=== PATIENT | female | born 1970 | race Caucasian/White ===

== ENCOUNTER 2018-03-19 17:18 | Inpatient (IN) | payer OTHER, MEDICAID ==
[~2018-03-19] VITALS: Ht 160 cm; Wt 85.3 kg
[~2018-03-19 17:18] MED LIST: DOCU250C16 PO; MECL-111 PO; MIDO10TA PO; NITR0.4T50 SL; PANT40TA25 PO; PARO25TA21 PO
[2018-03-19] MEDS ORDERED: PLEC3TAB PO (17:48)
[2018-03-19 18:13] LABS: GLUCOSE,POINT OF CARE 109 MG/DL (70-110)
[2018-03-19 18:30] LABS: BASOPHILS % (AUTO) 0.9 % (0.0-2.0); EOSINOPHILS % (AUTO) 3.3 % (1.0-6.0); HEMATOCRIT 34.8 % (36-46); HEMOGLOBIN 11.4 g/dL (12.0-16.0); LYMPHOCYTES # (AUTO) 2.2 K/uL (1.0-4.8); LYMPHOCYTES % (AUTO) 28.3 % (22.0-44.0); MEAN CORPUSCULAR HEMOGLOBIN 24.4 pg (26.0-34.0); MEAN CORPUSCULAR HGB CONC 32.8 G/dL (31.0-37.0); MEAN CORPUSCULAR VOLUME 74 fL (80-100); MONOCYTES # (AUTO) 0.7 K/uL (0.1-1.0); MONOCYTES % (AUTO) 9.2 % (2.0-9.0); NEUTROPHILS # (AUTO) 4.5 K/uL (1.8-7.7); NEUTROPHILS % (AUTO) 58.3 % (40.0-70.0); PLATELET COUNT (AUTO) 374 K/uL (150-450); RED BLOOD CELL COUNT(AUTO) 4.69 MIL/uL (4.00-5.20); RED CELL DISTRIBUTION WIDTH 17.2 % (11.5-14.5)
[2018-03-19 18:33] LABS: ANION GAP 7 mmol/L (8-16); CALCIUM, TOTAL 8.7 mg/dL (8.8-10.5); CARBON DIOXIDE 28 mmol/L (22-29); CHLORIDE 104 mmol/L (98-107); CREATININE 0.76 mg/dL (0.60-1.30); GLOMERULAR FILTR. RATE CALC > 60 mL/min (>60); GLUCOSE,RANDOM 103 mg/dL (70-110); SODIUM SERUM 139 mmol/L (136-145); UREA NITROGEN, BLOOD 12 mg/dL (7-18)
[2018-03-19 18:34] LABS: AMPHET/METH SCREEN,URINE NEGATIVE (NEGATIVE); BARBITURATE SCREEN, URINE NEGATIVE (NEGATIVE); BENZODIAZEPINES SCREEN,URINE NEGATIVE (NEGATIVE); CANNABINOID SCREEN,URINE NEGATIVE (NEGATIVE); COCAINE SCREEN,URINE NEGATIVE (NEGATIVE); METHADONE SCREEN, URINE NEGATIVE (NEGATIVE); OPIATE SCREEN,URINE NEGATIVE (NEGATIVE)
[2018-03-19 18:35] LABS: PHENCYCLIDINE SCREEN,URINE NEGATIVE (NEGATIVE)
[2018-03-19 18:38] LABS: ALANINE AMINOTRANSFERASE 22 U/L (12-78); ALBUMIN 3.3 g/dL (3.4-5.0); ALKALINE PHOSPHATASE 111 U/L (46-116); ASPARTATE AMINOTRANSFERASE 16 U/L (15-37); BILIRUBIN,TOTAL 0.2 mg/dL (0.1-1.0); TOTAL PROTEIN, SERUM 7.7 g/dL (6.4-8.2)
[2018-03-19] MEDS ORDERED: ZOLPIDEM TARTRATE 10 MG TABLET PO PRN (23:30)
[2018-03-19] MEDS ORDERED: HALOPERIDOL 5 MG TABLET PO PRN (23:30)
[2018-03-20 01:30] VITALS: BP 126/48
[2018-03-20] MEDS: LORazepam 2 MG TABLET PO PRN ×2 (01:31→09:07)
[2018-03-20 08:25] LABS: CHOL/HDL RATIO 3.2 (3.9-5.7)
[2018-03-20 08:30] VITALS: BP 108/61
[2018-03-20] MEDS ORDERED: BENZOCAINE/MENTHOL LOZENGE MM PRN (11:00)
[2018-03-20] MEDS ORDERED: MAG HYDROX/AL HYDROX/SIMETH ES 30 ML SUSPENSION UDCUP PO PRN (11:00)
[2018-03-20] MEDS ORDERED: BACITRACIN 28.4 GM OINTMENT TP PRN (11:00)
[2018-03-20] MEDS ORDERED: PETROLATUM,WHITE 71 GM JELLY TP PRN (11:00)
[2018-03-20] MEDS ORDERED: ONDANSETRON HCL 4 MG TABLET PO PRN (11:00)
[2018-03-20] MEDS ORDERED: LOPERAMIDE HCL 2 MG CAPSULE PO PRN (11:00)
[2018-03-20] MEDS ORDERED: CloNIDine HCL 0.1 MG TABLET PO PRN (11:00)
[2018-03-20] MEDS ORDERED: IBUPROFEN 600 MG TABLET PO PRN (11:00)
[2018-03-20] MEDS ORDERED: MAGNESIUM HYDROXIDE SUSPENSION 30 ML UDCUP PO PRN (11:00)
[2018-03-20] MEDS ORDERED: ACETAMINOPHEN 325 MG TABLET PO PRN (11:00)
[2018-03-20] MEDS ORDERED: ALBUTEROL SULFATE HFA 90 MCG/PUFF 8 GM INHALER IH PRN (11:00)
[2018-03-20] MEDS: QUEtiapine FUMARATE 25 MG TABLET PO SCH (16:54)
[2018-03-20 20:00] VITALS: BP 108/71
[2018-03-21 07:41] LABS: % IRON SATURATION 4.6 % (22-44)
[2018-03-21 08:30] VITALS: BP 122/70
[2018-03-21] MEDS: QUEtiapine FUMARATE 25 MG TABLET PO SCH ×2 (08:36→16:11)
[2018-03-21] MEDS: OMEPRAZOLE 20 MG CAPSULE PO SCH (08:36)
[2018-03-21] MEDS: DOCUSATE SODIUM 100 MG CAPSULE PO SCH (08:36)
[2018-03-21 22:21] VITALS: BP 105/79
[2018-03-22 09:31] VITALS: BP 124/89
[2018-03-22] MEDS: DOCUSATE SODIUM 100 MG CAPSULE PO SCH (09:38)
[2018-03-22] MEDS: QUEtiapine FUMARATE 25 MG TABLET PO SCH ×2 (09:38→16:26)
[2018-03-22] MEDS: OMEPRAZOLE 20 MG CAPSULE PO SCH (09:39)
[2018-03-22] MEDS: FERROUS SULFATE 325 MG EC TABLET PO SCH (16:26)
[2018-03-22 18:52] VITALS: BP 115/74
[2018-03-23] MEDS: FERROUS SULFATE 325 MG EC TABLET PO SCH ×2 (07:00→19:53)
[2018-03-23 08:20] VITALS: BP 122/72
[2018-03-23] MEDS: DOCUSATE SODIUM 100 MG CAPSULE PO SCH (09:00)
[2018-03-23] MEDS: OMEPRAZOLE 20 MG CAPSULE PO SCH (09:00)
[2018-03-23] MEDS: QUEtiapine FUMARATE 25 MG TABLET PO SCH ×2 (09:00→16:34)
[2018-03-23] MEDS: LORazepam 2 MG TABLET PO PRN (16:37)
[2018-03-23 17:00] VITALS: BP 152/89
[2018-03-24] MEDS: LORazepam 2 MG TABLET PO PRN (06:37)
[2018-03-24] MEDS: FERROUS SULFATE 325 MG EC TABLET PO SCH (06:37)
[2018-03-24] MEDS ORDERED: CHOLECALCIFEROL (VIT D3) 1,000 UNITS TABLET PO SCH (09:00)
[2018-03-24] MEDS: QUEtiapine FUMARATE 25 MG TABLET PO SCH (09:10)
[2018-03-24] MEDS: DOCUSATE SODIUM 100 MG CAPSULE PO SCH (09:10)
[2018-03-24] MEDS: OMEPRAZOLE 20 MG CAPSULE PO SCH (09:10)
[2018-03-24] MEDS ORDERED: QUET25TA PO (13:04)
[2018-03-24] MEDS ORDERED: DSS100 PO (13:18)
[2018-03-24] MEDS ORDERED: VITAD1000 PO (13:18)
[2018-03-24] MEDS ORDERED: FERR-89 PO (13:19)
[2018-03-24] MEDS ORDERED: OMEP20 PO (13:19)
== END 2018-03-24 15:15 | disposition home or self-care (01) | DRG 885 ==
LOC: EMS 17:19 → 3EI 23:30
PROVIDERS: ADMIT Psychiatry & Neurology Child & Adolescent Psychiatry; ATTEND Psychiatry & Neurology Child & Adolescent Psychiatry
DX: F29 Unspecified psychosis not due to a substance or known physiological condition (principal); R45.851 Suicidal ideations; E11.9 Type 2 diabetes mellitus without complications; F32.9 Major depressive disorder, single episode, unspecified; I10 Essential (primary) hypertension; D64.9 Anemia, unspecified; F41.9 Anxiety disorder, unspecified; I20.9 Angina pectoris, unspecified; E55.9 Vitamin D deficiency, unspecified; J45.909 Unspecified asthma, uncomplicated; K21.9 Gastro-esophageal reflux disease without esophagitis; Z86.73 Personal history of transient ischemic attack (TIA), and cerebral infarction without residual deficits; Z79.51 Long term (current) use of inhaled steroids; Z79.84 Long term (current) use of oral hypoglycemic drugs; Z79.899 Other long term (current) drug therapy; Z83.3 Family history of diabetes mellitus; Z83.42 Family history of familial hypercholesterolemia; Z84.89 Family history of other specified conditions; Z82.61 Family history of arthritis; Z83.49 Family history of other endocrine, nutritional and metabolic diseases; Z82.49 Family history of ischemic heart disease and other diseases of the circulatory system
CPT/HCPCS: 82306; 83540; 83550; 99285; G0480

== ENCOUNTER 2018-05-11 13:55 | Inpatient (IN) | payer OTHER, MEDICAID ==
[~2018-05-11] VITALS: Ht 160 cm; Wt 85.3 kg
[~2018-05-11 13:55] MED LIST changes: -DOCU250C16 PO; +DSS100 PO; +FERR-89 PO; -MECL-111 PO; -MIDO10TA PO; -NITR0.4T50 SL; +OMEP20 PO; -PANT40TA25 PO; -PARO25TA21 PO; +QUET25TA PO; +VITAD1000 PO
[2018-05-11] MEDS ORDERED: HALOPERIDOL 5 MG TABLET PO PRN (14:15)
[2018-05-11] MEDS ORDERED: ZOLPIDEM TARTRATE 10 MG TABLET PO PRN (14:15)
[2018-05-11 14:43] VITALS: BP 134/91
[2018-05-11] MEDS ORDERED: TRAZ-219 PO (16:29)
[2018-05-11] MEDS ORDERED: VENL-67 PO (16:29)
[2018-05-11 17:36] VITALS: BP 145/76
[2018-05-11] MEDS ORDERED: PNEUMOCOCCAL VACCINE POLYVALENT 0.5 ML VIAL [PPSV23] IM ONE (18:00)
[2018-05-11] MEDS ORDERED: IBUPROFEN 400 MG TABLET PO PRN (20:15)
[2018-05-11] MEDS ORDERED: MAGNESIUM HYDROXIDE SUSPENSION 30 ML UDCUP PO PRN (20:15)
[2018-05-11] MEDS ORDERED: LOPERAMIDE HCL 2 MG CAPSULE PO PRN (20:15)
[2018-05-11] MEDS ORDERED: ONDANSETRON HCL 4 MG TABLET PO PRN (20:15)
[2018-05-11] MEDS ORDERED: ALBUTEROL SULFATE HFA 90 MCG/PUFF 8 GM INHALER IH PRN (20:15)
[2018-05-11] MEDS ORDERED: DOCUSATE SODIUM 100 MG CAPSULE PO PRN (20:15)
[2018-05-11] MEDS ORDERED: CloNIDine HCL 0.1 MG TABLET PO PRN (20:15)
[2018-05-11] MEDS ORDERED: PETROLATUM,WHITE 71 GM JELLY TP PRN (20:15)
[2018-05-11] MEDS ORDERED: MAG HYDROX/AL HYDROX/SIMETH ES 30 ML SUSPENSION UDCUP PO PRN (20:15)
[2018-05-11] MEDS ORDERED: ACETAMINOPHEN 325 MG TABLET PO PRN (20:15)
[2018-05-11] MEDS: TraZODone HCL 50 MG TABLET PO SCH (21:02)
[2018-05-12] MEDS: FERROUS SULFATE 325 MG EC TABLET PO SCH ×2 (06:52→16:38)
[2018-05-12] MEDS ORDERED: NICOTINE 14 MG/24 HOUR PATCH TD SCH (09:00)
[2018-05-12] MEDS ORDERED: VENLAFAXINE HCL 75 MG ER CAPSULE PO SCH (09:00)
[2018-05-12] MEDS: DOCUSATE SODIUM 100 MG CAPSULE PO SCH (09:08)
[2018-05-12] MEDS: OMEPRAZOLE 20 MG CAPSULE PO SCH (09:08)
[2018-05-12] MEDS: CHOLECALCIFEROL (VIT D3) 1,000 UNITS TABLET PO SCH (09:09)
[2018-05-12] MEDS: LORazepam 2 MG TABLET PO PRN (09:10)
[2018-05-12 09:21] VITALS: BP 107/85
[2018-05-12] MEDS ORDERED: VENLAFAXINE HCL 75 MG ER CAPSULE PO ONE (10:15)
[2018-05-12 19:44] VITALS: BP 118/67
[2018-05-12] MEDS: TraZODone HCL 50 MG TABLET PO SCH (20:57)
[2018-05-13 04:38] LABS: AMPHET/METH SCREEN,URINE NEGATIVE (NEGATIVE); BARBITURATE SCREEN, URINE NEGATIVE (NEGATIVE); BENZODIAZEPINES SCREEN,URINE NEGATIVE (NEGATIVE); CANNABINOID SCREEN,URINE NEGATIVE (NEGATIVE); COCAINE SCREEN,URINE NEGATIVE (NEGATIVE); METHADONE SCREEN, URINE NEGATIVE (NEGATIVE); OPIATE SCREEN,URINE NEGATIVE (NEGATIVE); PHENCYCLIDINE SCREEN,URINE NEGATIVE (NEGATIVE)
[2018-05-13 04:42] LABS: APPEARANCE,URINE CLEAR (CLEAR); BILIRUBIN,URINE NEGATIVE (NEGATIVE); GLUCOSE, URINE (UA) NEGATIVE (NEGATIVE); KETONES,URINE NEGATIVE (NEGATIVE); LEUKOCYTE ESTERASE ,URINE NEGATIVE (NEGATIVE); NITRATE,URINE NEGATIVE (NEGATIVE); OCCULT BLOOD,URINE NEGATIVE (NEGATIVE); PH,URINE 7.5 (5.0-8.0); PROTEIN,URINE NEGATIVE (NEGATIVE); UROBILINOGEN,URINE 0.2 mg/dL (<=1.0)
[2018-05-13 06:52] LABS: EOSINOPHILS % (AUTO) 4.8 % (1.0-6.0); HEMATOCRIT 35.3 % (36-46); HEMOGLOBIN 11.4 g/dL (12.0-16.0); LYMPHOCYTES # (AUTO) 1.8 K/uL (1.0-4.8); LYMPHOCYTES % (AUTO) 32.7 % (22.0-44.0); MEAN CORPUSCULAR HEMOGLOBIN 24.3 pg (26.0-34.0); MEAN CORPUSCULAR HGB CONC 32.3 G/dL (31.0-37.0); MEAN CORPUSCULAR VOLUME 75 fL (80-100); MONOCYTES # (AUTO) 0.4 K/uL (0.1-1.0); MONOCYTES % (AUTO) 7.8 % (2.0-9.0); NEUTROPHILS % (AUTO) 53.7 % (40.0-70.0); PLATELET COUNT (AUTO) 360 K/uL (150-450); RED BLOOD CELL COUNT(AUTO) 4.68 MIL/uL (4.00-5.20); RED CELL DISTRIBUTION WIDTH 17.8 % (11.5-14.5)
[2018-05-13] MEDS: FERROUS SULFATE 325 MG EC TABLET PO SCH ×2 (07:13→16:48)
[2018-05-13 07:19] LABS: ALANINE AMINOTRANSFERASE 15 U/L (12-78); ALBUMIN 3.1 g/dL (3.4-5.0); ALKALINE PHOSPHATASE 85 U/L (46-116); ANION GAP 5 mmol/L (8-16); ASPARTATE AMINOTRANSFERASE 13 U/L (15-37); BILIRUBIN,TOTAL 0.3 mg/dL (0.1-1.0); CALCIUM, TOTAL 8.4 mg/dL (8.8-10.5); CARBON DIOXIDE 28 mmol/L (22-29); CHLORIDE 103 mmol/L (98-107); CHOL/HDL RATIO 3.6 (3.9-5.7); CHOLESTEROL 202 mg/dL (131-200); CREATININE 0.48 mg/dL (0.60-1.30); FREE T4 (FREE THYROXINE) 0.88 ng/dL (0.76-1.46); GLOMERULAR FILTR. RATE CALC > 60 mL/min (>60); GLUCOSE,RANDOM 79 mg/dL (70-110); HCG,QUANTITATIVE < 1 mIU/mL (0-6); HDL CHOLESTEROL 56 mg/dL (40-60); LDL CHOL (CALC.) 130 mg/dL (0-130); POTASSIUM 4.1 mmol/L (3.5-5.1); SODIUM SERUM 136 mmol/L (136-145); THYROID STIMULATING HORMONE 0.85 uIU/mL (0.36-3.74); TOTAL PROTEIN, SERUM 6.6 g/dL (6.4-8.2); TRIGLYCERIDES 78 mg/dL (15-150); UREA NITROGEN, BLOOD 9 mg/dL (7-18)
[2018-05-13] MEDS: DOCUSATE SODIUM 100 MG CAPSULE PO SCH (08:27)
[2018-05-13] MEDS: OMEPRAZOLE 20 MG CAPSULE PO SCH (08:27)
[2018-05-13] MEDS: VENLAFAXINE HCL 150 MG ER CAPSULE PO SCH (08:27)
[2018-05-13] MEDS: CHOLECALCIFEROL (VIT D3) 1,000 UNITS TABLET PO SCH (08:27)
[2018-05-13 10:01] VITALS: BP 103/74
[2018-05-13 17:36] VITALS: BP 109/57
[2018-05-13] MEDS: TraZODone HCL 50 MG TABLET PO SCH (20:42)
[2018-05-13] MEDS: LORazepam 2 MG TABLET PO PRN (20:45)
[2018-05-14] MEDS: FERROUS SULFATE 325 MG EC TABLET PO SCH ×2 (07:15→17:37)
[2018-05-14 08:10] VITALS: BP 110/71
[2018-05-14] MEDS: VENLAFAXINE HCL 150 MG ER CAPSULE PO SCH (08:54)
[2018-05-14] MEDS: DOCUSATE SODIUM 100 MG CAPSULE PO SCH (08:54)
[2018-05-14] MEDS: CHOLECALCIFEROL (VIT D3) 1,000 UNITS TABLET PO SCH (08:54)
[2018-05-14] MEDS: OMEPRAZOLE 20 MG CAPSULE PO SCH (08:54)
[2018-05-14] MEDS: LORazepam 2 MG TABLET PO PRN (14:03)
[2018-05-14] MEDS: TraZODone HCL 50 MG TABLET PO SCH (20:28)
[2018-05-14 21:42] VITALS: BP 110/66
[2018-05-15] MEDS: FERROUS SULFATE 325 MG EC TABLET PO SCH ×2 (06:52→17:30)
[2018-05-15] MEDS: OMEPRAZOLE 20 MG CAPSULE PO SCH (08:11)
[2018-05-15] MEDS: CHOLECALCIFEROL (VIT D3) 1,000 UNITS TABLET PO SCH (08:11)
[2018-05-15] MEDS: DOCUSATE SODIUM 100 MG CAPSULE PO SCH (08:11)
[2018-05-15] MEDS: VENLAFAXINE HCL 150 MG ER CAPSULE PO SCH (08:11)
[2018-05-15 08:56] VITALS: BP 100/74
[2018-05-15 17:18] VITALS: BP 104/60
[2018-05-15] MEDS: LORazepam 2 MG TABLET PO PRN (20:22)
[2018-05-15] MEDS: TraZODone HCL 50 MG TABLET PO SCH (20:22)
[2018-05-16] MEDS: FERROUS SULFATE 325 MG EC TABLET PO SCH (06:50)
[2018-05-16 08:10] VITALS: BP 107/70
[2018-05-16] MEDS: DOCUSATE SODIUM 100 MG CAPSULE PO SCH (08:18)
[2018-05-16] MEDS: CHOLECALCIFEROL (VIT D3) 1,000 UNITS TABLET PO SCH (08:18)
[2018-05-16] MEDS: OMEPRAZOLE 20 MG CAPSULE PO SCH (08:18)
[2018-05-16] MEDS: VENLAFAXINE HCL 150 MG ER CAPSULE PO SCH (08:18)
== END 2018-05-16 16:15 | disposition home or self-care (01) | DRG 885 ==
LOC: 3EX 15:26
DX: F33.2 Major depressive disorder, recurrent severe without psychotic features (principal); R45.851 Suicidal ideations; I10 Essential (primary) hypertension; E11.9 Type 2 diabetes mellitus without complications; E55.9 Vitamin D deficiency, unspecified; K59.09 Other constipation; K21.9 Gastro-esophageal reflux disease without esophagitis; F44.5 Conversion disorder with seizures or convulsions; F41.9 Anxiety disorder, unspecified; J45.909 Unspecified asthma, uncomplicated; Z86.73 Personal history of transient ischemic attack (TIA), and cerebral infarction without residual deficits; Z95.0 Presence of cardiac pacemaker; I25.2 Old myocardial infarction; Z91.5 Personal history of self-harm; Z95.828 Presence of other vascular implants and grafts; Z79.899 Other long term (current) drug therapy
CPT/HCPCS: 80307; 83036; 84439; 84443; Q0162

== ENCOUNTER 2018-07-02 10:08 | Inpatient (IN) | payer MEDICARE, MEDICAID ==
[~2018-07-02] VITALS: Ht 160 cm; Wt 86.0 kg
[~2018-07-02 10:08] MED LIST changes: -QUET25TA PO; +TRAZ-219 PO; +VENL-67 PO
[2018-07-02] MEDS ORDERED: HALOPERIDOL 5 MG TABLET PO PRN (10:15)
[2018-07-02] MEDS ORDERED: ZOLPIDEM TARTRATE 10 MG TABLET PO PRN (10:15)
[2018-07-02] MEDS ORDERED: LORazepam 2 MG TABLET PO PRN (10:15)
[2018-07-02 10:31] VITALS: BP 128/84
[2018-07-02] MEDS ORDERED: PLEC3TAB PO (11:06)
[2018-07-02] MEDS ORDERED: PREG75 PO (11:07)
[2018-07-02 20:43] VITALS: BP 153/81
[2018-07-02] MEDS ORDERED: ONDANSETRON HCL 4 MG TABLET PO PRN (21:45)
[2018-07-02] MEDS ORDERED: ALBUTEROL SULFATE HFA 90 MCG/PUFF 8 GM INHALER IH PRN (21:45)
[2018-07-02] MEDS ORDERED: LOPERAMIDE HCL 2 MG CAPSULE PO PRN (21:45)
[2018-07-02] MEDS ORDERED: NICOTINE 14 MG/24 HOUR PATCH TD PRN (21:45)
[2018-07-02] MEDS ORDERED: PETROLATUM,WHITE 71 GM JELLY TP PRN (21:45)
[2018-07-02] MEDS ORDERED: IBUPROFEN 400 MG TABLET PO PRN (21:45)
[2018-07-02] MEDS ORDERED: MAGNESIUM HYDROXIDE SUSPENSION 30 ML UDCUP PO PRN (21:45)
[2018-07-02] MEDS ORDERED: CloNIDine HCL 0.1 MG TABLET PO PRN (21:45)
[2018-07-02] MEDS ORDERED: ACETAMINOPHEN 325 MG TABLET PO PRN (21:45)
[2018-07-02] MEDS ORDERED: GuaiFENesin/D-METHORPHAN [SUGAR-FREE] 200-20MG/10 ML SYRUP UDCUP PO PRN (21:45)
[2018-07-02] MEDS ORDERED: DOCUSATE SODIUM 100 MG CAPSULE PO PRN (21:45)
[2018-07-02] MEDS ORDERED: MAG HYDROX/AL HYDROX/SIMETH ES 30 ML SUSPENSION UDCUP PO PRN (21:45)
[2018-07-03] MEDS: FERROUS SULFATE 325 MG EC TABLET PO SCH ×2 (07:09→16:03)
[2018-07-03 08:05] VITALS: BP 139/73
[2018-07-03] MEDS ORDERED: OMEPRAZOLE 20 MG CAPSULE PO SCH (09:00)
[2018-07-03] MEDS ORDERED: CHOLECALCIFEROL (VIT D3) 1,000 UNITS TABLET PO SCH (09:00)
[2018-07-03] MEDS ORDERED: DOCUSATE SODIUM 100 MG CAPSULE PO SCH (09:00)
[2018-07-03] MEDS ORDERED: VENLAFAXINE HCL 75 MG ER CAPSULE PO SCH (15:00)
[2018-07-03 16:00] VITALS: BP 130/64
[2018-07-03 16:13] LABS: GLUCOMETER DEV NAME(LOC) 3EX 1; GLUCOSE,POINT OF CARE 136 MG/DL (70-110)
[2018-07-03 16:59] VITALS: BP 138/68
[2018-07-03 17:45] VITALS: BP 138/68
[2018-07-03 19:23] VITALS: BP 107/73
[2018-07-03 19:42] VITALS: BP 115/72
== END 2018-07-03 21:09 | disposition short-term general hospital (02) | DRG 885 ==
LOC: EDSTATUS 10:08 → 3EX 19:05
DX: F33.2 Major depressive disorder, recurrent severe without psychotic features (principal); R45.851 Suicidal ideations; E55.9 Vitamin D deficiency, unspecified; K59.00 Constipation, unspecified; K21.9 Gastro-esophageal reflux disease without esophagitis; J44.9 Chronic obstructive pulmonary disease, unspecified; I10 Essential (primary) hypertension; D64.9 Anemia, unspecified; F44.5 Conversion disorder with seizures or convulsions; Z91.5 Personal history of self-harm; I25.2 Old myocardial infarction; Z85.9 Personal history of malignant neoplasm, unspecified; Z95.0 Presence of cardiac pacemaker
CPT/HCPCS: 70450; 93005